=== PATIENT | female | born 1975 | race Caucasian/White ===

== ENCOUNTER 2024-01-10 16:10 | Outpatient (CLI) | payer BC, SELFPAY | END 2024-01-10 16:11 | disposition home or self-care (01) | PROVIDERS: PCP Physician Assistant Medical; Visit Provider Physician Assistant Medical | DX: Z00.00 Encounter for general adult medical examination without abnormal findings (principal); E66.9 Obesity, unspecified; Z13.1 Encounter for screening for diabetes mellitus; Z13.6 Encounter for screening for cardiovascular disorders; Z11.59 Encounter for screening for other viral diseases; Z13.0 Encounter for screening for diseases of the blood and blood-forming organs and certain disorders involving the immune mechanism | CPT/HCPCS: 80053; 80061; 84443; 86703; 86803; 87086 ==

== ENCOUNTER 2024-12-05 15:10 | Outpatient (CLI) | payer BC, SELFPAY ==
--- OUTSIDE RECORDS SUMMARY | 2024-12-05 15:39 | XMS_ITS | Encounter Summary ---
Author Organization [facility] Address [address] [place] [address]. [place] [address] Care Team Providers Care Real Estate Office Supervisor Name Role Phone Karsten Soria MD Primary Care Provider [phone] Jeanette Choi MD Unavailable Jeanette Choi MD Unavailable [phone] Jeanette Choi MD Unavailable [phone] Encounter Details Date Type Department Care Team (Late st Contact Info) Description 09/18/2019 Orders Only [address] [place] [address] Fiorella Hopper, RN Social History Tobacco Use Types Packs/Day Years Used Date Smoking Tobacco: Never Smokeless Tobacco: Never Alcohol Use Standard Drinks/Week Comments Yes 0 (1 standard drink = 0.6 oz pur e alcohol) 2x/mth Comments No Sex and Gender Information Value Date Recorded Sex Assigned at Not on file Legal Sex Female 3:09 AM AND DRYING SUPERVISOR COOKING CASING Gender Identity Not on file Sexual Orientation Not on file documented as of this encounter Plan of Treatment Not on file documented as of this encounter Procedures Procedure Name Priority Date/Time Associated Diagnosis Comments HC COLP CERVIX/UPPER VAGINA Routine 03/09/2018 12:00 AM CDT documented in this encounter Results * COLP CERVIX/UPPER VAGINA (03/09/2018 12:00 AM CDT) us Patient Reported PROCEDURES Final Result documented in this encounter Visit Diagnoses Not on filedocumented in this encounter Care Teams Real Estate Office Supervisor Relationship Specialty Start Date End Date Agueda Soriao MD [place] PCP - General Internal Medicine 06/27/14 Jeanette Choi MD [address], [address] [address] Assigned OBGYN Provider 06/28/20 Jeanette Choi MD [address], [address] [address] feed mill supervisor 11/17/23 Jeanette Choi MD [address], [address] [address] Assigned OBGYN Provider 04/03/24 documented as of this encounter
--- OUTSIDE RECORDS SUMMARY | 2024-12-05 15:39 | XMS_ITS | Clinical Summary ---
Author Organization [facility] Address [address] [place] [address] Care Team Providers Care Rabbit Fancier Name Role Phone None Primary Care Provider Unavailabl e Allergies No known active allergies Medications IBUPROFEN 800 MG TAB take 1 tablet (800 mg) by oral route 3 times per day with food 30 0 7 Active cetirizine (ZYRTEC) 10 mg tablet Take 1 tablet by mouth once daily. 0 4 Active levonorgestrel intrauterine device (MIRENA) 20 mcg/24 hr (5 years) IUD Inject 1 Device intrauterine one time. 1 Device 0 4 Active Active Problems No known active problems Social History Tobacco Use Types Packs/Day Years Used Date Smoking Tobacco: Never Smokeless Tobacco: Never Alcohol Use Standard Drinks/Week Comments Not Asked 0 (1 standard drink = 0.6 oz pur e alcohol) Comments No Sex and Gender Information Value Date Recorded Sex Assigned at Not on file Legal Sex Female 7:23 AM BARREL DRAINER Gender Identity Not on file Sexual Orientation Not on file Obstetrics History Last Filed Vital Signs Vital Sign Reading Time Taken Comments Blood Pressure 145/96 03/14/2022 10:13 AM CDT Pulse 84 03/14/2022 10:13 AM CDT Temperature 36.9 C (98.4 F) 03/14/2022 10:13 AM CDT Respiratory Rate 18 03/14/2022 10:13 AM CDT Oxygen Saturation 97% 03/14/2022 10:13 AM CDT Inhaled Oxygen Concentration - - Weight 104.3 kg (230 lb) 06/28/2017 5:30 PM BARREL DRAINER Height 176.5 cm (5' 9.5) 06/28/2017 5:30 PM BARREL DRAINER Body Mass Index 33.48 06/28/2017 5:30 PM BARREL DRAINER Plan of Treatment Health Maintenance Due Date Last Done Comments Tdap 1985 Depression screening for age 12+ 1986 HIV for age 15-65 1989 Hepatitis C screening for age 18-79 1992 Hepatitis B series for 19+ ( 1 of 3 - 19+ 3-dose series) 1993 Tetanus booster 1994 Pap test for age 21-65 1995 BMI (ht and wt on same day) for age 18+ 02/16/2017 0 02/17/2016 Colonoscopy through age 75 2019 Lipids for age 45-75 2019 Mammogram for age 45-75 2019 COVID-19 vaccine series ( season) 2024 04/10/2021, 03/04/2021 Pneumococcal series for age 50+ (1 of 1 - PCV) 2024 Zoster (shingles) series for age 50+ (1 of 2) 2024 Influenza Vaccine (Season Ended) 2025 [facility] Care Teams Rabbit Fancier Relationship Specialty Start Date End Date None . PCP - General 12/30/06
--- OUTSIDE RECORDS SUMMARY | 2024-12-05 15:39 | XMS_ITS | Clinical Summary ---
Author Organization [facility] Address [address] [place] [address]. [place] [address] Care Team Providers Care Biomass Plant Technician Name Role Phone Karsten Soria MD Primary Care Provider [phone] Jeanette Choi MD Unavailable Jeanette Choi MD Unavailable Allergies No known active allergies Medications fluticasone (VERAMYST) 27.5 MCG/SPRAY spray [place] 2 sprays into both nostrils daily. Active levonorgestrel (MIRENA) 20 MCG/24HR IUDIndications:En counter for removal and reinsertion of intrauterine contraceptive device 1 each (20 mcg) by Intrauterine route once Active phentermine (ADIPEX-P) 37.5 MG capsule Take 37.5 mg by mouth every morning. Active Active Problems Problem Noted Date Diagnosed Date Morbid obesity 06/22/2020 H/O LEEP 08/17/2018 Overview (05/30/2024): 08/22/06 LSIL Pap 09/29/06 [place] Bx: MIKE 1, ECC: neg 04/18, 10/17, 10/18, 11/19 - all NIL paps 07/26 - NIL pap, neg HR HPV. 07/12/16 Pap NIL with Pos HR HPV. Not HPV 16 or 18. Plan: cotest in 1 year 11/23/17 Patient is lost to pap tracking follow-up. 01/26/18 NIL pap, + HR HPV 16. Plan colp due by 04/28/18 03/09/18 [place] Bx: MIKE 1 & 2, ECC: limited sample. Plan LEEP 08/17/18 LEEP: MIKE 1, neg margins. Plan 1 year cotest 06/22/20 NIL pap, + HR HPV 16. Plan colp bef 09/20/20 08/28/20 [place] - MIKE 1. ECC- negative. Plan 1 yr co-test. 10/08/2021 Lost to follow-up for pap tracking 03/04/24 NIL pap, + HR HPV 16. Plan colp due by 06/03/24 05/07/24 COLP- MIKE 1. ECC- Neg. Plan cotest in 1 year due by 05/07/25 Encounter for gynecological examination without abnormal finding 07/12/2016 Cervical high risk HPV (human papillomavirus) te st positive 07/12/2016 Overview (06/29/2020): Encounter for insertion of Mirena IUD 07/16/2013 Overview (07/17/2013): Mirena IUD insertion due for removal 07/16/18 Lot # [id number] CARDIOVASCULAR SCREENING; LDL GOAL LESS THAN 160 04/11/2010 Resolved Problems Problem Noted Date Diagnosed Date Resolved Date Health Shelter 06/27/2014 11/27/2023 Immunizations Immunization Administration Dates Next Due TDAP Vaccine (Adacel) 07/12/2016 Family History Medical History Relation Comments Diabetes Maternal Grandmother Relation Status Comments Brother Alive Father Alive Maternal Grandmother Mother Alive Sister Alive Social History Tobacco Use Types Packs/Day Years Used Date Smoking Tobacco: Never Smokeless Tobacco: Never Tobacco Cessation:Counseling Given: No Alcohol Use Standard Drinks/Week Comments Not Currently 0 (1 standard drink = 0.6 oz pur e alcohol) PHQ-2 Answer Date Recorded PHQ-2 Score 0 03/04/2024 Adolescent Education Answer Date Record ed Getting School Help Needed Not on file 03/19 Comments No Sex and Gender Information Value Date Recorded Sex Assigned at Not on file Legal Sex Female 3:09 AM NAILER MACHINE Gender Identity Not on file Sexual Orientation Not on file Last Filed Vital Signs Vital Sign Reading Time Taken Comments Blood Pressure 122/80 05/07/2024 8:40 AM NAILER MACHINE Pulse 66 08/18/2015 1:58 PM NAILER MACHINE Temperature 36.7 C (98.1 F) 07/12/2016 2:36 PM NAILER MACHINE Respiratory Rate - - Oxygen Saturation 99% 08/18/2015 1:58 PM NAILER MACHINE Inhaled Oxygen Concentration - - Weight 120.7 kg (266 lb) 05/07/2024 8:40 AM NAILER MACHINE Height 175.3 cm (5' 9) 05/07/2024 8:40 AM NAILER MACHINE Body Mass Index 39.28 05/07/2024 8:40 AM NAILER MACHINE Plan of Treatment Health Maintenance Due Date Last Done Comments ADVANCE CARE PLANNING 1974 ANNUAL REVIEW OF HM ORDERS 1974 CT COLONOGRAPHY 1974 FIT 1974 FLEX SIG 1974 sDNA (Cologuard) 1974 COLONOSCOPY 1984 COLORECTAL CANCER SCREENING 1984 HIV SCREENING 1989 HEPATITIS C SCREENING 1992 HEPATITIS B VACCINE (1 of 3 - 19+ 3-dose series) 1993 DIABETES SCREENING 07/29/2019 07/29/2016 LIPID 07/29/2021 07/29/2016 COVID-19 VACCINE ( - 2023- season) 2024 04/10/2021, 03/04/2021 PNEUMOCOCCAL VACCINE 50+ YEARS (1 of 1 - PCV) 2024 ZOSTER VACCINE (1 of 2) 2024 PHQ-2 (once per calendar year) 2024 03/04/2024 INFLUENZA VACCINE (Season Ended) 2025 YEARLY PREVENTIVE VISIT 03/04/2025 03/04/20 24, 06/22/2020, 01/26/2018, Additional history exists HPV FOLLOW-UP 05/07/2025 03/04/2024, 06/12, 01/26/2018, Additional history exists PAP FOLLOW-UP 05/07/2025 03/04/2024, 02/11, 06/22/2020, Additional history exists MAMMO SCREENING 11/23/2025 11/24/2023, 02/11, 03/03/2017, Additional history exists DTAP/TDAP/TD VACCINE (2 - Td or Tdap) 07/12/2026 07/12/2016 PAP Discontinued 03/04/2024, 02/11, 06/22/2020, Additional history exists HPV VACCINE Aged Out No longer eligi ble based on patient's age to complete this topic MENINGITIS VACCINE Aged Out No longer eligible based on patient's age to complete this topic Procedures Procedure Name Priority Date/Time Associated Diagnosis Comments HPV AND GYNECOLOGIC CYTOLOGY PANEL Routine 03/04/2024 3:04 PM CDT Human papillomavirus (HPV) type 16 DNA detected in cervical specimen MA SCREENING BILATERAL W/ [place] Routine 11/24/2023 11:02 AM CDT Visit for screening mammogram GLUCOSE Routine 07/29/2016 8:22 AM NAILER MACHINE Encounter for gynecological examination without abnormal finding LIPID REFLEX TO DIRECT LDL PANEL Routine 07/29/2016 8:22 AM NAILER MACHINE Encounter for gynecological examination without abnormal finding from Last 3 Months or Most Recently Relevant to Health Maintenance Results * (ABNORMAL) HPV and Gynecologic Cytology Panel (03/04/2024 3:04 PM CDT) Human Papilloma Virus 16 DNA Positive(A) Negative 03/06/2024 7:12 AM CDT [facility] Human Papilloma Virus 18 DNA Negative Negative 03/06/2024 7:12 AM CDT [facility] Human Papilloma Virus Other Negative Negative 03/06/2024 7:12 AM CDT [facility] FINAL DIAGNOSIS This patient's sample is positive for HPV 16 DNA. METHODOLOGY: The [employer] system uses automated extraction, simultaneous amplification of HPV (E6/E7 oncogenes) and beta-globin, followed by real time detection of fluorescent labeled HPV and beta globin using specific oligonucleotide probes. The test specifically identifies types HPV 16 DNA and HPV 18 DNA while concurrently detecting the rest of the high risk types (31, 33, 35, 39, 45, 51, 52, 56, 58, 59, 66 or 68). COMMENTS: This test is not intended for use as a screening device for woman under age 30 with normal cervical cytology. Results should be correlated with cytologic and histologic findings. Close clinical follow up is recommended. Please see the separate Gynecologic Cytology (Pap) report from the same collection date. 03/06/2024 7:12 AM CDT [facility] Brushing ENDOCERVICAL STRUCTURE / Unknown Non-blood Collection / Unknown 03/04/2024 3:04 PM CDT 03/04/2024 3:43 PM CDT Jeanette Choi MD LAB - BLOOD ORDERABLES Fi nal Result [facility] Specialty Lab [address] [facility] [address], Room [address] [id number], [facility] MOLECULAR DIAGNOSTICS Molecular Diagnostics [address] [facility] [address], [address] [address], [facility] * MA Screen Bilateral w/[place] (11/24/2023 11:02 AM CDT) Anatomical Region Laterality Modality Breast Bilateral Mammography Impressions 11/24/2023 12:27 PM CDT IMPRESSION: ACR BI-RADS Category 1: Negative BREAST CANCER SCREENING RECOMMENDATION: Routine yearly mammography beginning at age 40 or as discussed with your provider. The results and recommendations of this examination will be communicated to the patient. Carolyn Herzog MD Narrative 11/24/2023 12:27 PM CDT BILATERAL FULL FIELD DIGITAL SCREENING MAMMOGRAM WITH TOMOSYNTHESIS Performed on: 11/24/23 Compared to: 03/09/2018 and 07/12/2016 Technique: This study was evaluated with the assistance of Computer-Aided Detection. Breast Tomosynthesis was used in interpretation. Findings: The breasts are heterogeneously dense, which may obscure small masses. There is no radiographic evidence of malignancy. us Jeanette Choi MD IMG MAMMOGRAPHY ORDERABLE S Final Result * Lipid Profile with reflex to direct LDL (07/29/2016 8:22 AM NAILER MACHINE) Cholesterol 143 <200 mg/dL [facility] Triglycerides 56 <150 mg/dL [facility] Comment:Fasting specimen HDL Cholesterol 52 >49 mg/dL [facility] LDL Cholesterol Calculated 80 <100 mg/dL [facility] Comment:Desirable: <100 mg/d l Non HDL Cholesterol 91 <130 mg/dL [facility] Blood specimen (specimen) 07/29/2016 8:22 AM NAILER MACHINE 07/29/2016 8:27 AM NAILER MACHINE Monica Monsivais MD LAB - BLOOD ORDERABLES F inal Result Performing Organization Address City/[facility] Co de Phone Number [facility] [address] [place] [address] * (ABNORMAL) Glucose (07/29/2016 8:22 AM NAILER MACHINE) Glucose 107(H) 70 - 99 mg/dL [facility] Comment:Fasting specimen Blood specimen (specimen) 07/29/2016 8:22 AM NAILER MACHINE 07/29/2016 8:27 AM NAILER MACHINE Monica Monsivais MD LAB - BLOOD ORDERABLES F inal Result Performing Organization Address [facility] Co de Phone Number [facility] [address] [place] [phone] from Last 3 Months or Most Recently Relevant to Health Maintenance Insurance BC OUT OF STATE BCBS OUT OF STATE Care Teams Biomass Plant Technician Relationship Specialty Start Date End Date Agueda Soriao MD [place] PCP - General Internal Medicine 06/27/14 Jeanette Choi MD [address] [address] coremaker helper 11/17/23 Jeanette Choi MD [address] [address] Assigned OBGYN Provider 04/03/24
--- OUTSIDE RECORDS SUMMARY | 2024-12-05 15:39 | XMS_ITS | Encounter Summary ---
Author Organization [facility] Address [address] [place] [address]. [place] [address] Care Team Providers Care Machine Worker Name Role Phone Karsten Soria MD Primary Care Provider [phone] Jeanette Choi MD Unavailable [phone] Jeanette Choi MD Unavailable [phone] Jeanette Choi MD Unavailable [phone] Encounter Details Date Type Department Care Team (Late st Contact Info) Description 09/18/2019 Orders Only [address] [place] [address] Fiorella Hopper, RN Social History Tobacco Use Types Packs/Day Years Used Date Smoking Tobacco: Never Smokeless Tobacco: Never Alcohol Use Standard Drinks/Week Comments Yes 0 (1 standard drink = 0.6 oz pur e alcohol) 2x/mth Comments No Sex and Gender Information Value Date Recorded Sex Assigned at Not on file Legal Sex Female 3:09 AM BASKET MACHINE OPERATOR Gender Identity Not on file Sexual Orientation Not on file documented as of this encounter Plan of Treatment Not on file documented as of this encounter Procedures Procedure Name Priority Date/Time Associated Diagnosis Comments HC COLP CERVIX/UPPER VAGINA W LOOP ELEC BX CERVIX Routine 08/17/2018 12:00 AM BASKET MACHINE OPERATOR documented in this encounter Results * COLP CERVIX/UPPER VAGINA W LOOP ELEC BX CERVIX (08/17/2018 12:00 AM BASKET MACHINE OPERATOR) us Patient Reported PROCEDURES Final Result documented in this encounter Visit Diagnoses Not on filedocumented in this encounter Care Teams Machine Worker Relationship Specialty Start Date End Date Agueda Soriao MD [place] PCP - General Internal Medicine 06/27/14 Jeanette Choi MD [address], [address] [address] Assigned OBGYN Provider 06/28/20 Jeanette Choi MD [address] [address] clinical laboratory technician 11/17/23 Jeanette Choi MD [address] [address] Assigned OBGYN Provider 04/03/24 documented as of this encounter
--- OUTSIDE RECORDS SUMMARY | 2024-12-05 15:39 | XMS_ITS | Clinical Summary ---
Author Organization [facility] Address [address] [place] [address] Care Team Providers Care Sports Recruiter Name Role Phone Needs Pcp, Assignment Primary Care Provider [phone] Source Comments You are receiving this document as you are listed as the primary care provider,follow-up provider, or the patient has been referred to you for consultation.This is in compliance with the Medicare and[facility] EHR Incentive Program,which states Providers who transition their patient to another setting of careor provider of care or refers their patient to another provider of care shouldprovide summary care record for each transition of care or referral. [facility] Allergies No known active allergies Medications No known medications Immunizations Immunization Administration Dates Next Due DT Ped 12/26/1989 Measles/Rubella 12/26/1989 Social History Tobacco Use Types Packs/Day Years Used Date Smoking Tobacco: Never Smokeless Tobacco: Never Comments Unknown Sex and Gender Information Value Date Recorded Sex Assigned at Not on file Legal Sex Female 9:10 AM CDT Gender Identity Not on file Sexual Orientation Not on file Plan of Treatment Health Maintenance Due Date Last Done Comments Cervical Cancer Screening Due 1974 Colon Cancer Screening Plan Due 1974 Hep C Screening (Preventive Services) 1974 Mammogram 1974 HIV Screening (Preventive Services) 1990 Adult Preventive Visit 1992 HepB Vaccine (1) 1993 DTaP/Tdap/Td Vaccine (2 - Tdap) 12/27/1999 0 Cholesterol 2019 COVID-19 Vaccine ( - 2023-2 5 season) 2024 Pneumococcal Vaccine 50+ Yrs (1 of 1 - PCV) 2024 Zoster/Shingles Vaccine (1 of 2) 2024 Influenza Vaccine (Season Ended) 2025 HepA Vaccine Aged Out No longer eligi ble based on patient's age to complete this topic Hib Vaccine Aged Out No longer eligi ble based on patient's age to complete this topic IPV (Polio) Vaccine Aged Out No longe r eligible based on patient's age to complete this topic MCV4 Vaccine Aged Out No longer eligi ble based on patient's age to complete this topic Meningococcal B Vaccine Aged Out No l onger eligible based on patient's age to complete this topic Insurance [employer] Care Teams Sports Recruiter Relationship Specialty Start Date End Date Needs Pcp, [place] [address] PCP - General 07/03/17
--- NOTE | 2024-12-05 16:00 | CRLHL7_ITS ---
For Patients: As a result of the Century Cures Act, medical imaging exams and procedure reports are released immediately into your electronic medical record. You may view this report before your referring provider. If you have questions, please contact your health care provider. INDICATION: enlargement, evaluate for nodule/goiter COMPARISON: none TECHNIQUE: Riley scale and color Doppler images were acquired of the thyroid gland. FINDINGS: The thyroid gland demonstrates diffusely heterogeneous echogenicity and has a lobular outer contour. The right lobe measures 8.2 x 2.7 x 3.0 cm and the left lobe measures 6.5 x 2.1 x 2.4 cm in size. There are no suspicious masses or nodules. Isthmus measures 8 millimeters. The color Doppler images demonstrate diffusely increased vascularity. There is no evidence of cervical lymphadenopathy or parathyroid mass. IMPRESSION: Enlarged, heterogeneous and hypervascular thyroid. No thyroid nodule. Dictated by Frank Andrea MD @ 12/06/2024 6:23:38 AM (Electronically Signed)
--- OUTSIDE RECORDS SUMMARY | 2024-12-06 01:04 | XMS_ITS | Clinical Summary ---
Author Organization [facility] Address [address] [place] [address] Care Team Providers Care Yarn Wrapper Name Role Phone None Primary Care Provider [...] on file Legal Sex Female 7:23 AM NICKEL PLANT OPERATOR Gender Identity Not on file Sexual [...] 104.3 kg (230 lb) 06/28/2017 5:30 PM NICKEL PLANT OPERATOR Height 176.5 cm (5' 9.5) 06/28/2017 5:30 PM NICKEL PLANT OPERATOR Body Mass Index 33.48 06/28/2017 5:30 PM NICKEL PLANT OPERATOR Plan of Treatment Health Maintenance Due Date [...] 2024 Influenza Vaccine (Season Ended) 2025 [facility] Care Teams Yarn Wrapper Relationship Specialty Start Date End Date None . PCP - General 12/30/06
--- OUTSIDE RECORDS SUMMARY | 2024-12-06 01:04 | XMS_ITS | Encounter Summary ---
Author Organization [facility] Address [address] [place] [address]. [place] [address] Care Team Providers Care Career Guidance Counselor Name Role Phone Karsten Soria MD Primary Care Provider [phone] Jeanette Choi MD Unavailable [phone] Jeanette Choi MD Unavailable [phone] Jenaette Choi MD Unavailable [phone] Encounter Details Date Type Department Care Team (Late st Contact Info) Description 09/18/2019 Orders Only [address] [place] [address] Fiorella Hopper, RN Social History Tobacco Use Types Packs/Day Years Used Date Smoking Tobacco: Never Smokeless Tobacco: Never Alcohol Use Standard Drinks/Week Comments Yes 0 (1 standard drink = 0.6 oz pur e alcohol) 2x/mth Comments No Sex and Gender Information Value Date Recorded Sex Assigned at Not on file Legal Sex Female 3:09 AM LANDSCAPE SPECIALIST Gender Identity Not on file Sexual Orientation [...] on filedocumented in this encounter Care Teams Career Guidance Counselor Relationship Specialty Start Date End Date Agueda Soriao MD [place] PCP - General Internal Medicine 06/27/14 Jeanette Choi MD [address], [address] [address] Assigned OBGYN Provider 06/28/20 Jeanette Choi MD [address], [address] [address] editor 11/17/23 Jeanette Choi MD [address], [address] [address] Assigned OBGYN Provider 04/03/24 documented as of this encounter
--- OUTSIDE RECORDS SUMMARY | 2024-12-06 01:04 | XMS_ITS | Clinical Summary ---
Author Organization [facility] Address [address] [place] [address]. [place] [address] Care Team Providers Care Family Practice Md Name Role Phone Karsten Soria MD Primary Care Provider [phone] Jeanette Choi MD Unavailable Jeanette Choi MD Unavailable [phone] Allergies No known active allergies Medications fluticasone (VERAMYST) 27.5 MCG/SPRAY spray [place] 2 sprays into both nostrils daily. Active levonorgestrel (MIRENA) 20 MCG/24HR IUDIndications:En counter for removal and reinsertion of intrauterine contraceptive device 1 each (20 mcg) by Intrauterine route once Active phentermine (ADIPEX-P) 37.5 MG capsule Take 37.5 mg by mouth every morning. Active Active Problems Problem Noted Date Diagnosed Date Morbid obesity 06/22/2020 H/O LEEP 08/17/2018 Overview (05/30/2024): 08/22/06 LSIL Pap 09/29/06 [facility] Bx: MIKE 1, ECC: neg 04/18, 10/17, 10/18, 11/19 - all NIL paps 07/26 - NIL pap, neg HR HPV. 07/12/16 Pap NIL with Pos HR HPV. Not HPV 16 or 18. Plan: cotest in 1 year 11/23/17 Patient is lost to pap tracking follow-up. 01/26/18 NIL pap, + HR HPV 16. Plan colp due by 04/28/18 03/09/18 [facility] Bx: MIKE 1 & 2, ECC: limited sample. Plan LEEP 08/17/18 LEEP: MIKE 1, neg margins. Plan 1 year cotest 06/22/20 NIL pap, + HR HPV 16. Plan colp bef 09/20/20 08/28/20 [place] - MIKE 1. ECC- negative. Plan 1 [...] Noted Date Diagnosed Date Resolved Date Health [facility] 06/27/2014 11/27/2023 Immunizations Immunization Administration Dates Next [...] on file Legal Sex Female 3:09 AM DIRECTOR OF CAREER RESOURCES Gender Identity Not on file Sexual Orientation Not on file Last Filed Vital Signs Vital Sign Reading Time Taken Comments Blood Pressure 122/80 05/07/2024 8:40 AM DIRECTOR OF CAREER RESOURCES Pulse 66 08/18/2015 1:58 PM DIRECTOR OF CAREER RESOURCES Temperature 36.7 C (98.1 F) 07/12/2016 2:36 PM DIRECTOR OF CAREER RESOURCES Respiratory Rate - - Oxygen Saturation 99% 08/18/2015 1:58 PM DIRECTOR OF CAREER RESOURCES Inhaled Oxygen Concentration - - Weight 120.7 kg (266 lb) 05/07/2024 8:40 AM DIRECTOR OF CAREER RESOURCES Height 175.3 cm (5' 9) 05/07/2024 8:40 AM DIRECTOR OF CAREER RESOURCES Body Mass Index 39.28 05/07/2024 8:40 AM DIRECTOR OF CAREER RESOURCES Plan of Treatment Health Maintenance Due Date [...] screening mammogram GLUCOSE Routine 07/29/2016 8:22 AM DIRECTOR OF CAREER RESOURCES Encounter for gynecological examination without abnormal finding LIPID REFLEX TO DIRECT LDL PANEL Routine 07/29/2016 8:22 AM DIRECTOR OF CAREER RESOURCES Encounter for gynecological examination without abnormal finding [...] positive for HPV 16 DNA. METHODOLOGY: The ZOZI system uses automated extraction, simultaneous amplification of [...] nal Result SPECIALTY [facility] Specialty Lab [address] [facility] [address], [address] [address], [facility] Molecular Diagnostics [address] [facility] [address], [address] [address], [facility] * [place] Screen Bilateral w/[place] (11/24/2023 11:02 [...] reflex to direct LDL (07/29/2016 8:22 AM DIRECTOR OF CAREER RESOURCES) Cholesterol 143 <200 mg/dL [facility] Triglycerides 56 <150 mg/dL [facility] Comment:Fasting specimen HDL Cholesterol 52 >49 mg/dL [facility] LDL Cholesterol Calculated 80 <100 mg/dL [facility] Comment:Desirable: <100 mg/d l Non HDL Cholesterol 91 <130 mg/dL [facility] Blood specimen (specimen) 07/29/2016 8:22 AM DIRECTOR OF CAREER RESOURCES 07/29/2016 8:27 AM DIRECTOR OF CAREER RESOURCES Monica Monsivais MD LAB - BLOOD ORDERABLES F inal Result Performing Organization Address City/[facility] Co de Phone Number [facility] [address] [place] [address] * (ABNORMAL) Glucose (07/29/2016 8:22 AM DIRECTOR OF CAREER RESOURCES) Glucose 107(H) 70 - 99 mg/dL [facility] Comment:Fasting specimen Blood specimen (specimen) 07/29/2016 8:22 AM DIRECTOR OF CAREER RESOURCES 07/29/2016 8:27 AM DIRECTOR OF CAREER RESOURCES Monica Monsivais MD LAB - BLOOD ORDERABLES F inal Result Performing Organization Address [facility] Co de Phone Number [facility] [address] [place] [phone] from Last 3 Months or Most Recently Relevant to Health Maintenance Insurance BC OUT OF STATE BCBS OUT OF STATE Care Teams Family Practice Md Relationship Specialty Start Date End Date Agueda Soriao MD [place] PCP - General Internal Medicine 06/27/14 Jeanette Choi MD [address] [address] templer head 11/17/23 Jeanette Choi MD [address] [address] Assigned OBGYN Provider 04/03/24
--- OUTSIDE RECORDS SUMMARY | 2024-12-06 01:04 | XMS_ITS | Encounter Summary ---
Author Organization [facility] Address [address] [place] [address]. [place] [address] Care Team Providers Care Drill Instructor Name Role Phone Karsten Soria MD Primary Care Provider [phone] Jeanette Choi MD Unavailable Jeanette Choi MD Unavailable [phone] Jeanette Choi MD Unavailable [phone] Encounter Details Date Type Department Care Team (Late st Contact Info) Description 09/18/2019 Orders Only [address] [place] [address] Fiorella Hopper, RN Social History Tobacco Use Types Packs/Day Years Used Date Smoking Tobacco: Never Smokeless Tobacco: Never Alcohol Use Standard Drinks/Week Comments Yes 0 (1 standard drink = 0.6 oz pur e alcohol) 2x/mth Comments No Sex and Gender Information Value Date Recorded Sex Assigned at Not on file Legal Sex Female 3:09 AM SALES AND MARKETING ANALYST Gender Identity Not on file Sexual Orientation Not on file documented as of this encounter Plan of Treatment Not on file documented as of this encounter Procedures Procedure Name Priority Date/Time Associated Diagnosis Comments HC COLP CERVIX/UPPER VAGINA W LOOP ELEC BX CERVIX Routine 08/17/2018 12:00 AM SALES AND MARKETING ANALYST documented in this encounter Results * COLP CERVIX/UPPER VAGINA W LOOP ELEC BX CERVIX (08/17/2018 12:00 AM SALES AND MARKETING ANALYST) us Patient Reported PROCEDURES Final Result documented in this encounter Visit Diagnoses Not on filedocumented in this encounter Care Teams Drill Instructor Relationship Specialty Start Date End Date Agueda Soriao MD [place] PCP - General Internal Medicine 06/27/14 Jeanette Choi MD [address], [address] [address] Assigned OBGYN Provider 06/28/20 Jeanette Choi MD [address] [address] railroad operator 11/17/23 Jeanette Choi MD [address] [address] Assigned OBGYN Provider 04/03/24 documented as of this encounter
--- OUTSIDE RECORDS SUMMARY | 2024-12-06 01:04 | XMS_ITS | Clinical Summary ---
Author Organization [facility] Address [address] [place] [address] Care Team Providers Care Transportation Analyst Name Role Phone Needs Pcp, Assignment Primary Care Provider [phone] Source Comments You are receiving this document as you are listed as the primary care provider,follow-up provider, or the patient has been referred to you for consultation.This is in compliance with the Medicare and[facility] EHR Incentive Program,which states Providers who transition their patient to another setting of careor provider of care or refers their patient to another provider of care shouldprovide summary care record for each transition of care or referral. [facility] Allergies No known active allergies Medications No [...] this topic Insurance [employer] CHOICE Care Teams Transportation Analyst Relationship Specialty Start Date End Date Needs Pcp, [place] [address] PCP - General 07/03/17
== END 2024-12-05 15:11 | disposition home or self-care (01) ==
LOC: US 15:10
PROVIDERS: PCP Physician Assistant Medical; Visit Provider Physician Assistant Medical
DX: E04.9 Nontoxic goiter, unspecified (principal)
CPT/HCPCS: 76536

== ENCOUNTER 2025-03-17 14:51 | Outpatient (CLI) | payer BC, SELFPAY ==
--- NOTE | 2025-03-17 15:00 | CRLHL7_ITS ---
For Patients: As a result of the Century Cures Act, medical imaging exams and procedure reports are released immediately into your electronic medical record. You may view this report before your referring provider. If you have questions, please contact your health care provider. INDICATION: BILATERAL SCREENING MAMMOGRAM, ASYMPTOMATIC 49 Y/O FEMALE COMPARISON: 12/14/2018, 03/09/2018, 03/03/2017 TECHNIQUE: Digital mammogram in CC and MLO projections including computer-aided detection (CAD) and tomosynthesis. BREAST COMPOSITION: The breasts are heterogeneously dense, which may obscure small masses. FINDINGS: No suspicious findings. ASSESSMENT: BI-RADS 1 Negative RECOMMENDATION: Annual screening mammogram. A lay language report of this examination will be provided to the patient. Dictated by: Frank Andrea MD @ 03/18/2025 10:14:45 (Electronically Signed)
== END 2025-03-17 14:52 | disposition home or self-care (01) ==
LOC: MAMMO 14:52
PROVIDERS: PCP Physician Assistant Medical; Visit Provider Physician Assistant Medical
DX: Z12.31 Encounter for screening mammogram for malignant neoplasm of breast (principal); R92.333 Mammographic heterogeneous density, bilateral breasts
CPT/HCPCS: 77063; 77067

== ENCOUNTER 2025-04-11 08:15 | Outpatient (CLI) | payer BC, SELFPAY ==
[2025-04-11 14:11] LABS: Chlamydia DNA Amplified* NOT DETECTED (No Detected); GC DNA Amplified* NOT DETECTED (No Detected)
[2025-04-14 17:35] LABS: HPV Source Cervix
[2025-04-17 08:40] LABS: Pap Test Digital Imaging Done
== END 2025-04-11 08:16 | disposition home or self-care (01) ==
PROVIDERS: PCP Physician Assistant Medical; Visit Provider Physician Assistant Medical
DX: Z00.00 Encounter for general adult medical examination without abnormal findings (principal)
CPT/HCPCS: 80053; 80061; 82306; 82607; 84443; 87491; 87591; 87624; 87625; 88141; 88142; 88175